=== PATIENT | female | born 2000 | race Two or more races ===

== ENCOUNTER 2022-07-14 11:53 | Emergency (ER) | payer OTHER ==
[~2022-07-14] VITALS: Ht 157.5 cm; Wt 88.5 kg
[2022-07-14] MEDS ORDERED: OSEL75CA PO (16:40)
== END 2022-07-14 16:53 | disposition home or self-care (01) ==
LOC: ER 11:53
DX: J10.1 Influenza due to other identified influenza virus with other respiratory manifestations (principal)